=== PATIENT | male | born 1995 | race Caucasian/White ===

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

== ENCOUNTER 2019-09-11 23:01 | Emergency (ER) | payer SELFPAY ==
[2019-09-11] MEDS ORDERED: NORMAL SALINE 1000 ML 1,000 ML IV ONE (23:12)
[2019-09-11] MEDS ORDERED: METOCLOPRAMIDE HCL INJ/PF 10 MG/2 ML SDV IV ONE (23:12)
--- NOTE | 2019-09-11 23:14 | ER Document Report ---
ED General - General Chief Complaint: ETOH Abuse Stated Complaint: ETOH Time Seen by Provider: 09/11/19 23:11 Mode of Arrival: Medic Information source: Relative, Emergency Med Personnel TRAVEL OUTSIDE OF THE [place] IN LAST 30 DAYS: No - HPI Onset: Other - some time today Onset/Duration: Gradual Quality of pain: No pain Severity: Severe Associated symptoms: Nausea, Vomiting, Other - Altered Mental Status Exacerbated by: Denies Relieved by: Denies Similar symptoms previously: No Recently seen / treated by doctor: No Notes: 23 year old male with a historuy of heavy alcohol use brought in by EMS for altered mental status, vomiting, sweating. The patient was found by his mother next to an empty bottle of whiskey. The patient's mother says he has drank a lot in the past but he has never drank to this point. The patient will not open his eyes but he does have a gag and is protecting his airway. Patient was somewhat sweaty on ER arrival. EMS had established an IV and started IV fluids and administered Zofran. Patient vomited once in the ER as well. No history could be obtained from the patient at this time. History is from his Mother and EMS. - Related Data Allergies/Adverse Reactions: No Known Allergies Allergy (Verified 12/20/16 09:28) Past Medical History - General Information source: Parent, Emergency Med Personnel - Social History Smoking Status: Never Smoker Frequency of alcohol use: Heavy Drug Abuse: None Lives with: Family Family History: Reviewed & Not Pertinent - Medical History Medical History: Negative Renal/ Medical History: Denies: Hx Peritoneal Dialysis - Immunizations Immunizations up to date: Yes Hx Diphtheria, Pertussis, Tetanus Vaccination: No Review of Systems - Review of Systems Constitutional: Diaphoresis, Other - Altered Mental Status Gastrointestinal: Nausea, Vomiting Neurological/Psychological: Other - Alcohol Abuse -: Yes All other systems reviewed and negative Physical Exam - Vital signs Vitals: Temp Pulse Resp BP Pulse Ox 97.3 F 59 L 18 116/70 99 09/11/19 23:12 09/11/19 23:12 09/11/19 23:12 09/11/19 23:12 09/11/19 23:12 - Notes Notes: GENERAL: Somewhat pale appearing, diaphoretic, minimally responsive. Patient has a gag reflex but is not responding verbally. HEAD: Atraumatic, normocephalic. EYES: Pupils equal round and reactive to light, extraocular movements intact, sclera anicteric, conjunctiva are normal. ENT: TMs normal, nares patent, oropharynx clear without exudates. Moist mucous membranes. NECK: Normal range of motion, supple without lymphadenopathy or JVD. LUNGS: Breath sounds clear to auscultation bilaterally and equal. No wheezes rales or rhonchi. HEART: Regular rate and rhythm without murmurs, rubs or gallops. ABDOMEN: Soft, nontender, normoactive bowel sounds. No guarding, no rebound. No masses appreciated. EXTREMITIES: Normal range of motion, no pitting or edema. No clubbing or cyanosis. NEUROLOGICAL: Patient is sleeping in his ER bed. He has a gag reflex and responds to painful stimuli. Patient unable to follow commands at this time. PSYCH: Normal mood, normal affect. SKIN: Warm, Diaphoretic, normal turgor, no rashes or lesions noted. Course - Re-evaluation Re-evalutation: 09/12/19 04:19 The patient arrived to ER severely intoxicated. He was given fluids and his mother sat next to him for most of his ER stay. The patient woke up and spoke some and was noticed to be crying by nursing staff some as well. The patient's mother wanted to get some sleep herself so she went home but left her phone number. Since the patient is so intoxicated the plan is to let him sleep it off and then to call the mother to come pick him up when he is clinically sober enough to be discharged. - Vital Signs Vital signs: Temp Pulse Resp BP Pulse Ox 98.3 F 18 L 17 110/64 99 09/12/19 02:00 09/12/19 02:00 09/12/19 04:00 09/12/19 02:00 09/12/19 04:00 - Laboratory Result Diagrams: 09/11/19 23:25 09/11/19 23:25 Laboratory results interpreted by me: 09/11/19 23:25 Sodium 145.5 H Chloride 108 H Discharge - Discharge Clinical Impression: Alcohol intoxication Qualifiers: Complication of substance-induced condition: uncomplicated Qualified Code(s): F10.920 - Alcohol use, unspecified with intoxication, uncomplicated Condition: Stable Disposition: HOME, SELF-CARE Instructions: Acute Alcohol Intoxication ([facility]) Additional Instructions: Drink plenty of fluids in the days to come. Re-evaluate your drinking habits. Follow up with a primary care doctor.
[2019-09-11 23:41] LABS: ABSOLUTE EOSINOPHILS # (AUTO) 0.1 10^3/uL (0.0-0.6); ABSOLUTE LYMPHOCYTES (AUTO) 1.8 10^3/uL (0.5-4.7); ABSOLUTE MONOCYTES (AUTO) 0.4 10^3/uL (0.1-1.4); ABSOLUTE NEUT (AUTO) 4.1 10^3/uL (1.7-8.2); BASOPHILS % (AUTO) 0.7 % (0-2); EOSINOPHILS % (AUTO) 1.9 % (0-6); HEMATOCRIT 44.6 % (37.9-51.0); HEMOGLOBIN 15.1 g/dL (13.5-17.0); LYMPHOCYTES % (AUTO) 27.7 % (13-45); MEAN CORPUSCULAR HGB CONC 33.8 g/dL (32.0-36.0); MEAN CORPUSCULAR VOLUME 89 fl (80-97); MONOCYTES % (AUTO) 5.6 % (3-13); PLATELET COUNT 161 10^3/uL (150-450); RED BLOOD COUNT 5.02 10^6/uL (4.35-5.55); SEGMENTED NEUTROPHILS % (AUTO) 64.1 % (42-78); TOTAL CELLS COUNTED % (AUTO) 100 %; WHITE BLOOD COUNT 6.4 10^3/uL (4.0-10.5)
[2019-09-12] LABS: ALBUMIN 4.6 g/dL (3.5-5.0); ALKALINE PHOSPHATASE 42 U/L (38-126); ANION GAP 13 (5-19); ASPARTATE AMINO TRANSFERASE 20 U/L (17-59); BILIRUBIN,DIRECT 0.2 mg/dL (0.0-0.4); BILIRUBIN,TOTAL 0.8 mg/dL (0.2-1.3); BLOOD UREA NITROGEN 12 mg/dL (7-20); CALCIUM 8.7 mg/dL (8.4-10.2); CARBON DIOXIDE 25 mmol/L (22-30); CHLORIDE 108 mmol/L (98-107); GLUCOSE 87 mg/dL (75-110); POTASSIUM 4.9 mmol/L (3.6-5.0); TOTAL PROTEIN 7.8 g/dL (6.3-8.2)
[2019-09-12 06:01] VITALS: BP 117/84
== END 2019-09-12 06:28 | disposition home or self-care (01) ==
LOC: ER 23:01
DX: F10.120 Alcohol abuse with intoxication, uncomplicated (principal); R11.2 Nausea with vomiting, unspecified; R61 Generalized hyperhidrosis
CPT/HCPCS: 99284; 96374; 36415; 80307; 83690; 85025; 80053; J2765; J7030